=== PATIENT | male | born 1965 | race Caucasian/White ===

== ENCOUNTER 2023-07-22 18:32 | Emergency (ER) | payer MEDICAID ==
[~2023-07-22] VITALS: Ht 177.8 cm; Wt 93.2 kg
[~2023-07-22 18:32] MED LIST: BAC10T PO; GABA600T PO; IBUP-1984 PO; TRAZ150T78 PO
[2023-07-22 18:56] LABS: BILIRUBIN,URINE NEGATIVE (Neg); CLARITY,URINE CLEAR (Clear); COLOR,URINE YELLOW (Yellow); GLUCOSE, URINE NEGATIVE (Neg); KETONES,URINE NEGATIVE (Neg); LEUKOCYTE ESTERASE ,URINE NEGATIVE (Neg); NITRITES, URINE NEGATIVE (Neg); OCCULT BLOOD,URINE MODERATE (Neg); PROTEIN,URINE NEGATIVE (Neg); UROBILINOGEN,URINE 0.2 E.U/dL (0.2-1.0)
[2023-07-22 19:06] LABS: URINE AMPHETAMINE SCREEN NEGATIVE (Neg); URINE BARBITUATE SCREEN NEGATIVE (Neg); URINE BENZODIAZEPINES SCREEN NEGATIVE (Neg); URINE CANNABINOID SCREEN NEGATIVE (Neg); URINE COCAINE SCREEN NEGATIVE (Neg); URINE METHADONE SCREEN NEGATIVE (Neg); URINE OPIATE SCREEN NEGATIVE (Neg); URINE PHENCYCLIDINE SCREEN NEGATIVE (Neg)
[2023-07-22 19:11] LABS: UA COLLECTION TYPE CLN CATCH MIDSTREAM
[2023-07-22 19:29] LABS: WBC,URINE 0-4 /HPF (0-4)
[2023-07-22 19:30] LABS: BACTERIA,URINE NONE SEEN /HPF (Neg); MUCUS STRANDS NONE SEEN /LPF (Neg); SQUAMOUS EPITHELIAL CELL,UR NONE SEEN /LPF (FEW)
[2023-07-22] MEDS ORDERED: ringers solution, lacted 1,000 ML IV ONE (19:45)
[2023-07-22 19:54] LABS: MONOCYTES # (AUTO) 0.3 X10'3 (0-0.9); PLATELET COUNT 122 X10'3 (140-440)
[2023-07-22 19:56] LABS: BASOPHILS % (AUTO) 0.2 % (0-1); EOSINOPHILS # (AUTO) 0.1 X10'3 (0-0.9); EOSINOPHILS % (AUTO) 2.8 % (0-6); HEMOGLOBIN 13.9 g/dl (14.0-17.9); LYMPHOCYTES # (AUTO) 1.6 X10'3 (1.1-4.8); LYMPHOCYTES % (AUTO) 32.3 % (21-51); MEAN CORPUSCULAR HEMOGLOBIN 31.4 PG (27.0-31.0); MEAN CORPUSCULAR HGB CONC 34.7 g/dL (33.0-36.5); MEAN CORPUSCULAR VOLUME 90.5 FL (78-98); MEAN PLATELET VOLUME 7.2 FL (7.4-10.4); MONOCYTES % (AUTO) 6.8 % (2-12); NEUTROPHILS # (AUTO) 2.8 X10'3 (1.8-7.7); NEUTROPHILS % (AUTO) 57.9 % (42-75); RED BLOOD COUNT 4.42 X10'6 (4.70-6.10); RED CELL DISTRIBUTION WIDTH 14.2 % (11.5-14.5); WHITE BLOOD COUNT 4.9 X10'3 (4.5-11.0)
[2023-07-22 20:09] LABS: ALANINE AMINOTRANSFERASE 95 U/L (12-78); ALBUMIN 3.6 G/DL (3.4-5.0); ALBUMIN/GLOBULIN RATIO 0.7 (1.1-1.5); ALKALINE PHOSPHATASE 70 IU/L (46-116); ANION GAP 10 (8-16); ASPARTATE AMINO TRANSFERASE 91 U/L (10-37); BILIRUBIN,TOTAL 0.8 MG/DL (0.1-1.0); BLOOD UREA NITROGEN 7 MG/DL (7-18); BUN/CREATININE RATIO 8.8 (10.0-20.0); CALCIUM 8.6 MG/DL (8.5-10.1); CHLORIDE 102 MMOL/L (99-107); GLUCOSE 102 MG/DL (70-104); POTASSIUM 3.4 MMOL/L (3.5-5.1); SODIUM 139 MMOL/L (135-145); TOTAL CARBON DIOXIDE 26.7 MMOL/L (24-32); TOTAL PROTEIN 8.6 G/DL (6.4-8.2); eCRCL 103 ML/MIN; eGFR > 90 ML/MIN
[2023-07-22] MEDS ORDERED: TETanus/Pertussis (Acell)/Diphther VAC/PF (Tdap-Adult) 0.5ml syringe IMVAC ONE (22:45)
[2023-07-22 22:58] LABS: ETHANOL 298 MG/DL (<10)
[2023-07-23] MEDS ORDERED: ringers solution, lacted 1,000 ML IV ONE (00:45)
[2023-07-23] MEDS ORDERED: CLIN-97 PO (00:51)
[2023-07-23] MEDS ORDERED: ceFAZolin/D5W- 1GM premix 50 ML IV ONE (00:54)
[2023-07-23 07:38] VITALS: BP 102/59; PULSE 87; RESP 14; TEMP 97.5; O2SAT 96
== END 2023-07-23 07:46 | disposition home or self-care (01) ==
LOC: ER 18:32
DX: S02.2XXA Fracture of nasal bones, initial encounter for closed fracture (principal); S00.11XA Contusion of right eyelid and periocular area, initial encounter; W18.39XA Other fall on same level, initial encounter; Y93.89 Activity, other specified; Y92.89 Other specified places as the place of occurrence of the external cause; Y99.8 Other external cause status
CPT/HCPCS: 36415; 70450; 70486; 71045; 72125; 80053; 80305; 80320; 81001; 85025; 90471; 90715; 93005; 96365; 96366; 99285; J0690; J7120

== ENCOUNTER 2023-07-23 16:53 | Emergency (ER) | payer MEDICAID ==
[~2023-07-23] VITALS: Ht 177.8 cm; Wt 93.2 kg
[~2023-07-23 16:53] MED LIST changes: +CLIN-97 PO
[2023-07-23 17:01] VITALS: BP 119/80; PULSE 103; RESP 16; TEMP 98.6; O2SAT 95
--- NOTE | 2023-07-23 23:54 | NUR ---
PT NOT IN ROOM FOR DC
== END 2023-07-24 00:07 | disposition home or self-care (01) ==
LOC: ER 16:54
DX: S02.2XXD Fracture of nasal bones, subsequent encounter for fracture with routine healing (principal); R07.81 Pleurodynia; M19.90 Unspecified osteoarthritis, unspecified site; F12.90 Cannabis use, unspecified, uncomplicated; Z88.0 Allergy status to penicillin; Z79.899 Other long term (current) drug therapy; Z79.1 Long term (current) use of non-steroidal anti-inflammatories (NSAID); Z79.2 Long term (current) use of antibiotics; Z90.49 Acquired absence of other specified parts of digestive tract; W19.XXXD Unspecified fall, subsequent encounter
CPT/HCPCS: 71100; 99283

== ENCOUNTER 2023-07-28 19:23 | Emergency (ER) | payer MEDICAID ==
[~2023-07-28] VITALS: Ht 170.2 cm; Wt 75.0 kg
[2023-07-28] MEDS ORDERED: IBUP-1984 PO (20:36)
[2023-07-28] MEDS ORDERED: ketorolac tromethamine 15mg/ml inj. IM ONE (20:40)
[2023-07-28 21:37] VITALS: BP 110/71; PULSE 82; RESP 14; TEMP 97.7; O2SAT 99
== END 2023-07-28 21:54 | disposition home or self-care (01) ==
LOC: ER 19:23
DX: S00.33XA Contusion of nose, initial encounter (principal); R07.89 Other chest pain; W19.XXXA Unspecified fall, initial encounter; Y93.89 Activity, other specified; Y92.89 Other specified places as the place of occurrence of the external cause; Y99.8 Other external cause status
CPT/HCPCS: 71045; 93005; 96372; 99284; J1885

== ENCOUNTER 2023-07-30 21:53 | Emergency (ER) | payer MEDICAID ==
[~2023-07-30] VITALS: Ht 177.8 cm; Wt 98.0 kg
[2023-07-30 22:08] LABS: EOSINOPHILS # (AUTO) 0.1 X10'3 (0-0.9); LYMPHOCYTES # (AUTO) 0.9 X10'3 (1.1-4.8); MEAN PLATELET VOLUME 7.4 FL (7.4-10.4); WHITE BLOOD COUNT 3.6 X10'3 (4.5-11.0)
[2023-07-30 22:10] LABS: BASOPHILS % (AUTO) 0.3 % (0-1); HEMATOCRIT 37.2 % (42.0-52.0); LYMPHOCYTES % (AUTO) 24.2 % (21-51); MEAN CORPUSCULAR HEMOGLOBIN 31.5 PG (27.0-31.0); MEAN CORPUSCULAR HGB CONC 34.8 g/dL (33.0-36.5); MEAN CORPUSCULAR VOLUME 90.4 FL (78-98); MONOCYTES # (AUTO) 0.5 X10'3 (0-0.9); MONOCYTES % (AUTO) 13.5 % (2-12); NEUTROPHILS # (AUTO) 2.2 X10'3 (1.8-7.7); PLATELET COUNT 100 X10'3 (140-440); RED BLOOD COUNT 4.12 X10'6 (4.70-6.10); RED CELL DISTRIBUTION WIDTH 13.9 % (11.5-14.5)
[2023-07-30 22:15] VITALS: BP 103/71; PULSE 83; RESP 14; TEMP 97.7; O2SAT 100
[2023-07-30 22:20] LABS: ALANINE AMINOTRANSFERASE 238 U/L (12-78); ALBUMIN 3.5 G/DL (3.4-5.0); ALBUMIN/GLOBULIN RATIO 0.8 (1.1-1.5); ALKALINE PHOSPHATASE 77 IU/L (46-116); ANION GAP 9 (8-16); ASPARTATE AMINO TRANSFERASE 252 U/L (10-37); BILIRUBIN,TOTAL 1.3 MG/DL (0.1-1.0); BLOOD UREA NITROGEN 8 MG/DL (7-18); BUN/CREATININE RATIO 9.3 (10.0-20.0); CALCIUM 8.8 MG/DL (8.5-10.1); CHLORIDE 103 MMOL/L (99-107); CREATININE 0.86 MG/DL (0.60-1.10); GLUCOSE 111 MG/DL (70-104); POTASSIUM 3.4 MMOL/L (3.5-5.1); SODIUM 141 MMOL/L (135-145); TOTAL PROTEIN 8.1 G/DL (6.4-8.2); eCRCL 95 ML/MIN; eGFR > 90 ML/MIN
[2023-07-30 22:27] LABS: LIPASE 55 U/L (16-77); PRO BRAIN NATRIURETIC PEPTIDE 56 PG/ML (0-125)
== END 2023-07-31 00:23 | disposition home or self-care (01) ==
LOC: ER 21:54
DX: R07.89 Other chest pain (principal); M19.90 Unspecified osteoarthritis, unspecified site; F12.90 Cannabis use, unspecified, uncomplicated; Z88.0 Allergy status to penicillin; Z79.1 Long term (current) use of non-steroidal anti-inflammatories (NSAID); Z79.2 Long term (current) use of antibiotics; Z79.899 Other long term (current) drug therapy; Z90.49 Acquired absence of other specified parts of digestive tract
CPT/HCPCS: 36415; 71045; 80053; 83690; 83880; 84484; 85025; 93005; 99285